=== PATIENT | female | born 1965 | race Two or more races ===

== ENCOUNTER → 2022-11-20 06:00 | Outpatient (CLI) | payer OTHER ==
[~2022-11-20] VITALS: Ht 160 cm; Wt 87.1 kg
[~2022-11-20 06:00] MED LIST: NORVASC10 MG PO
== END | disposition home or self-care (01) ==
LOC: LAB 06:00 → EDSTATUS 11-25 10:45 → SURH 11-25 10:45
PROVIDERS: ATTEND Colon & Rectal Surgery
DX: Z03.818 Encounter for observation for suspected exposure to other biological agents ruled out (principal); Z33.1 Pregnant state, incidental; Z20.822 Contact with and (suspected) exposure to COVID-19; K57.32 Diverticulitis of large intestine without perforation or abscess without bleeding; K92.1 Melena

== ENCOUNTER → 2022-11-21 | Outpatient (CLI) | payer OTHER | END | disposition home or self-care (01) | LOC: NUCLEAR 09:08 | PROVIDERS: ATTEND Internal Medicine Geriatric Medicine | DX: I35.0 Nonrheumatic aortic (valve) stenosis (principal); R01.1 Cardiac murmur, unspecified; I11.9 Hypertensive heart disease without heart failure ==

== ENCOUNTER 2024-10-08 11:22 | Inpatient (IN) | payer OTHER ==
[~2024-10-08] VITALS: Ht 160 cm; Wt 89.8 kg
[2024-10-08] MEDS ORDERED: JANTOVEN5 MG PO (11:29)
[2024-10-08] MEDS ORDERED: TOPROL XL50 M1 PO (11:30)
[2024-10-08] MEDS ORDERED: VASOTEC20 M1 PO (11:30)
--- NOTE | 2024-10-08 11:31 | NUR ---
PTE ALERTA Y ORIENTADA X3 NOTIFICA DOLOR EN TERRENCE PELVICA DESDE HORTENCIA EL CUAL SE INTENSIFICO SUKI LA MADRUGADA. REFIERE QUE EL DOLOR ES INTERMITENTE Y QUE ORINA MENOS CANTIDAD QUE ANTES. NIEGA OTRO SINTOMA RELACIONADO A ORINAR. SE MIDEN SV Y SE UBICA.
[2024-10-08] MEDS ORDERED: ONDANSETRON HCL 2 MG/ML VIAL IV ONE (12:45)
[2024-10-08] MEDS ORDERED: ONDANSETRON HCL 2 MG/ML VIAL ONE (12:50)
--- NOTE | 2024-10-08 13:00 | NUR ---
SE REALIZA LAB Y SE ADMINISTRA TX SGUN ORDEN MEDICA BAJO MEDIDAS ASEPTICAS. SE ORIENTA A PTE QUIEN REFIERE ENTENDER Y ACEPTAR. SE NOTIFICA ESTUDIO PENDIENTE A SECRETARIA
[2024-10-08 13:22] LABS: HEMATOCRIT 39.5 % (36.0-45.00); HEMOGLOBIN 13.2 g/dL (12.0-15.00); MEAN CELL VOLUME 83.3 fL (80.00-100.00); MEAN CORPUSCULAR HEMOGLOBIN 27.9 pg (27.00-32.0); MEAN CORPUSCULAR HGB CONC 33.5 g/dl (32.0-36.0); PLATELET COUNT 274 K/uL (150-450); RED BLOOD COUNT 4.75 M/uL (4.00-6.00); RED CELL DISTRIBUTION WIDTH 15.7 % (11.5-14.5)
[2024-10-08 13:45] LABS: CALCIUM 9.5 mg/dL (8.5-10.1); CREATININE SERUM 0.92 mg/dL (0.55-1.02); GFR 62.7; POTASSIUM 4.26 mEq/L (3.5-5.1)
[2024-10-08 14:08] LABS: PH,URINE 5.5 (5.0-8.0); URINE APPEARANCE Clear; URINE BILIRRUBIN Negative (NEGATIVE); URINE BLOOD Moderate; URINE COLOR Yellow; URINE GLUCOSE Negative (NEGATIVE); URINE KETONE Negative (NEGATIVE); URINE LEUKOCYTE Negative; URINE NITRATE Positive; URINE PROTEIN 30 (NEGATIVE); URINE UROBILINOGEN 0.2 E.U./dl
[2024-10-08 14:12] LABS: URINE EPITHELIAL CELLS 27.3 uL (0.0-38.8); URINE RBC 54.6 uL (0.0-20.8); URINE WBC 26.9 uL (0.0-23.2)
[2024-10-08 14:18] LABS: URINE BACTERIA > 9821.5 uL (0.0-1933)
[2024-10-08] MEDS ORDERED: PIPERACILLIN/TAZOBACTAM SODIUM 3.375 GM VIAL IV STA (16:44)
[2024-10-08] MEDS ORDERED: KETOROLAC TROMETHAMINE 15 MG VIAL IV STA (16:59)
[2024-10-08] MEDS ORDERED: PIPERACILLIN/TAZOBACTAM SODIUM 3.375 GM VIAL IV ONE (17:06)
[2024-10-08] MEDS ORDERED: KETOROLAC TROMETHAMINE 30 MG VIAL ONE (17:21)
[2024-10-08] MEDS ORDERED: FAMOTIDINE/PF 20 MG in 0.9 % SODIUM CHLORIDE 8 ML IV PUSH SCH (19:08)
[2024-10-08] MEDS ORDERED: ONDANSETRON HCL 4 MG in 0.9 % SODIUM CHLORIDE 50 ML IV PRN (19:15)
[2024-10-08] MEDS ORDERED: MORPHINE SULFATE 2 MG/ML CARTRIDGE IV SCH (19:15)
[2024-10-08] MEDS ORDERED: 0.9 % SODIUM CHLORIDE 1,000 ML IV SCH (19:15)
[2024-10-08] MEDS ORDERED: HYOSCYAMINE SULFATE 0.125 MG TAB.SUBL PO ONE (19:15)
[2024-10-08] MEDS ORDERED: ACETAMINOPHEN 500 MG GEL..CAP PO PRN (19:15)
[2024-10-08] MEDS ORDERED: WARFARIN SODIUM 5 MG TABLET PO SCH (21:00)
[2024-10-09] MEDS ORDERED: PIPERACILLIN/TAZOBACTAM SODIUM 3.375 GM in DEXTROSE 5 % IN WATER 100 ML IV SCH
[2024-10-09 00:21] VITALS: BP 108/72; O2SAT 95
[2024-10-09 00:21] LABS: INR 2.42
[2024-10-09 00:23] LABS: PARTIAL THROMBOPLASTIN TIME 47.9 SECONDS (22.0-34.0); PROTHROMBIN TIME 24.7 SECONDS (9.0-11.5)
[2024-10-09 02:00] VITALS: BP 140/64
[2024-10-09 08:01] VITALS: BP 96/46
[2024-10-09] MEDS ORDERED: METOPROLOL SUCCINATE 50 MG TAB.SR.24H PO SCH (09:00)
[2024-10-09] MEDS ORDERED: ENALAPRIL MALEATE 20 MG TABLET PO SCH (09:00)
[2024-10-09] MEDS ORDERED: SIMVASTATIN 20 MG TABLET PO SCH (17:00)
[2024-10-09 17:34] VITALS: BP 126/71; O2SAT 97
[2024-10-10 02:10] VITALS: BP 136/56
[2024-10-10 07:14] LABS: INR 3.09
[2024-10-10 09:01] VITALS: BP 174/64
[2024-10-10 16:25] VITALS: BP 132/93; O2SAT 98
[2024-10-10] MEDS ORDERED: MEROPENEM 500 MG/VIAL VIAL IV SCH (18:00)
[2024-10-10 21:44] VITALS: O2SAT 100
[2024-10-11] VITALS (9 sets, daily range): BP systolic 143–155; BP diastolic 56–63; O2SAT 90–100
[2024-10-11 06:10] LABS: HEMATOCRIT 33.5 % (36.0-45.00); MEAN CORPUSCULAR HGB CONC 32.9 g/dl (32.0-36.0); PLATELET COUNT 218 K/uL (150-450); RED BLOOD COUNT 3.94 M/uL (4.00-6.00)
[2024-10-11 06:53] LABS: ALBUMIN 2.8 gm/dL (3.4-5.0); BILIRUBIN TOTAL 0.34 mg/dL (0.3-1.2); CALCIUM 8.1 mg/dL (8.5-10.1); CREATININE SERUM 0.68 mg/dL (0.55-1.02); GFR 88.87; GLOBULINA 3.2 G/DL (2.4-3.5); PHOSPHOROUS 2.4 mg/dL (2.5-4.9); POTASSIUM 3.95 mEq/L (3.5-5.1)
[2024-10-11 06:56] LABS: C-REACTIVE PROTEIN 7.07 MG/DL (0.00-0.29)
[2024-10-11 07:44] LABS: INR 3.83
[2024-10-11 08:03] LABS: PROTHROMBIN TIME 37.8 SECONDS (9.0-11.5)
[2024-10-11] MEDS ORDERED: CYANOCOBALAMIN (VITAMIN B-12) 1,000 MCG/ML VIAL IM SCH (09:00)
[2024-10-11] MEDS ORDERED: SOD FERRIC GLUC COMPLX/SUCROSE 62.5 MG in 0.9 % SODIUM CHLORIDE 50 ML IV SCH (09:00)
[2024-10-11] MEDS ORDERED: AMINO ACIDS 1 EACH TABLET PO SCH (09:00)
[2024-10-11] MEDS ORDERED: FOLIC ACID 1 MG TABLET PO SCH (09:00)
[2024-10-12] VITALS (10 sets, daily range): BP systolic 136–180; BP diastolic 63–82; O2SAT 96–99
[2024-10-12 06:02] LABS: INR 3.71
[2024-10-12 06:24] LABS: PROTHROMBIN TIME 36.7 SECONDS (9.0-11.5)
[2024-10-12] MEDS ORDERED: SOD FERRIC GLUC COMPLX/SUCROSE 62.5 MG/5 ML AMPUL IV ONE (07:59)
[2024-10-12] MEDS ORDERED: FAMOTIDINE/PF 20 MG/2 ML VIAL ONE (07:59)
[2024-10-12] MEDS ORDERED: LOSARTAN POTASSIUM 25 MG TABLET PO SCH (09:00)
[2024-10-12 14:14] LABS: URINE APPEARANCE Clear; URINE BILIRRUBIN Negative (NEGATIVE); URINE BLOOD Small; URINE COLOR Yellow; URINE GLUCOSE Negative (NEGATIVE); URINE KETONE Negative (NEGATIVE); URINE LEUKOCYTE Negative; URINE NITRATE Negative; URINE PROTEIN Negative (NEGATIVE); URINE UROBILINOGEN 0.2 E.U./dl
[2024-10-12 14:17] LABS: URINE BACTERIA 4.8 uL (0.0-1933); URINE EPITHELIAL CELLS 8.3 uL (0.0-38.8)
[2024-10-12 15:14] LABS: URINE WBC 1.4 uL (0.0-23.2)
[2024-10-13] VITALS (10 sets, daily range): BP systolic 130–177; BP diastolic 50–80; O2SAT 97–99
[2024-10-13 06:51] LABS: INR 2.61
[2024-10-13 07:20] LABS: PROTHROMBIN TIME 26.5 SECONDS (9.0-11.5)
[2024-10-13] MEDS ORDERED: LACTOBACILLUS ACIDOPHILUS 1 CAP CAP PO SCH (09:00)
[2024-10-13] MEDS ORDERED: ENOXAPARIN SODIUM 100 MG/ML SYRINGE SUBCUTANEO NR (12:00)
[2024-10-13] MEDS ORDERED: ENOXAPARIN SODIUM 100 MG/ML SYRINGE SUBCUTANEO SCH (21:00)
[2024-10-13] MEDS ORDERED: ORPHENADRINE CITRATE 30 MG/ML AMPUL IV SCH (21:00)
[2024-10-14] VITALS (8 sets, daily range): BP systolic 162–171; BP diastolic 69–71; O2SAT 96–99
[2024-10-14 06:46] LABS: HEMATOCRIT 36.3 % (36.0-45.00); MEAN CELL VOLUME 84.8 fL (80.00-100.00); MEAN CORPUSCULAR HGB CONC 33.1 g/dl (32.0-36.0); PLATELET COUNT 251 K/uL (150-450); RED BLOOD COUNT 4.29 M/uL (4.00-6.00); RED CELL DISTRIBUTION WIDTH 14.4 % (11.5-14.5)
[2024-10-14 07:00] LABS: INR 1.76
[2024-10-14 07:12] LABS: PROTHROMBIN TIME 18.4 SECONDS (9.0-11.5)
[2024-10-14 07:23] LABS: ALBUMIN 3.2 gm/dL (3.4-5.0); BILIRUBIN TOTAL 0.57 mg/dL (0.3-1.2); CALCIUM 8.9 mg/dL (8.5-10.1); CREATININE SERUM 0.72 mg/dL (0.55-1.02); GFR 83.2; GLOBULINA 3.5 G/DL (2.4-3.5); MAGNESIUM 1.7 mg/dL (1.8-2.4); POTASSIUM 4.07 mEq/L (3.5-5.1); TOTAL PROTEIN 6.7 gm/dL (6.4-8.2)
[2024-10-15] VITALS (9 sets, daily range): BP systolic 157–160; BP diastolic 70–75; O2SAT 96–100
[2024-10-16] VITALS (10 sets, daily range): BP systolic 128–140; BP diastolic 50–70; O2SAT 8–99
[2024-10-16] MEDS ORDERED: LOSARTAN POTASSIUM 50 MG TABLET PO SCH (09:00)
[2024-10-17] VITALS (8 sets, daily range): BP systolic 150–171; BP diastolic 57–78; O2SAT 98–100
[2024-10-17 06:52] LABS: HEMATOCRIT 35.5 % (36.0-45.00); HEMOGLOBIN 11.6 g/dL (12.0-15.00); MEAN CELL VOLUME 85.3 fL (80.00-100.00); MEAN CORPUSCULAR HGB CONC 32.8 g/dl (32.0-36.0); PLATELET COUNT 261 K/uL (150-450); RED BLOOD COUNT 4.16 M/uL (4.00-6.00); RED CELL DISTRIBUTION WIDTH 14.8 % (11.5-14.5)
[2024-10-17 07:16] LABS: INR 1.18; PROTHROMBIN TIME 12.7 SECONDS (9.0-11.5)
[2024-10-17 07:34] LABS: BILIRUBIN TOTAL 0.4 mg/dL (0.3-1.2); CALCIUM 8.7 mg/dL (8.5-10.1); CREATININE SERUM 0.74 mg/dL (0.55-1.02); GFR 80.61; GLOBULINA 3.4 G/DL (2.4-3.5); MAGNESIUM 1.9 mg/dL (1.8-2.4); PHOSPHOROUS 2.9 mg/dL (2.5-4.9); POTASSIUM 5.08 mEq/L (3.5-5.1); TOTAL PROTEIN 6.4 gm/dL (6.4-8.2)
[2024-10-17] MEDS ORDERED: AMLODIPINE BESYLATE 5 MG TABLET PO SCH (12:00)
[2024-10-17 19:49] LABS: INR 1.18; PROTHROMBIN TIME 12.7 SECONDS (9.0-11.5)
[2024-10-18] VITALS (9 sets, daily range): BP systolic 118–137; BP diastolic 57–96; O2SAT 96–100
[2024-10-18] MEDS ORDERED: LOSARTAN POTASSIUM 50 MG TABLET PO SCH (09:00)
[2024-10-18] MEDS ORDERED: WARFARIN SODIUM 5 MG TABLET PO NR (09:00)
[2024-10-18] MEDS ORDERED: IRON FUM,PS/FOLIC/BCOMP,C NO.9 1 CAP CAPSULE PO SCH (09:00)
[2024-10-18] MEDS ORDERED: WARFARIN SODIUM 5 MG TABLET PO SCH (21:00)
[2024-10-19 00:35] VITALS: BP 141/69
[2024-10-19 01:17] VITALS: O2SAT 96
[2024-10-19 06:03] VITALS: O2SAT 98
[2024-10-19 08:55] VITALS: BP 144/80; O2SAT 98
== END 2024-10-19 10:07 | disposition home or self-care (01) | DRG 392 ==
LOC: ER 11:24 → MEDI 19:24
PROVIDERS: General Practice; Internal Medicine; Internal Medicine Infectious Disease; ADMIT Internal Medicine; ATTEND Internal Medicine
PROC: BW21ZZZ Computerized Tomography (CT Scan) of Abdomen and Pelvis (ICD-10-PCS; principal; 2024-10-08)
PROC: 4A12X4Z Monitoring of Cardiac Electrical Activity, External Approach (ICD-10-PCS; 2024-10-10)
DX: K57.32 Diverticulitis of large intestine without perforation or abscess without bleeding (principal); R65.10 Systemic inflammatory response syndrome (SIRS) of non-infectious origin without acute organ dysfunction; N39.0 Urinary tract infection, site not specified; G44.209 Tension-type headache, unspecified, not intractable; M54.2 Cervicalgia; D64.9 Anemia, unspecified; E88.09 Other disorders of plasma-protein metabolism, not elsewhere classified; B96.20 Unspecified Escherichia coli [E. coli] as the cause of diseases classified elsewhere; G47.33 Obstructive sleep apnea (adult) (pediatric); E78.5 Hyperlipidemia, unspecified; Z79.01 Long term (current) use of anticoagulants; Z95.2 Presence of prosthetic heart valve

== ENCOUNTER 2024-11-02 20:37 | Inpatient (IN) | payer OTHER ==
[~2024-11-02] VITALS: Ht 162.6 cm; Wt 86.2 kg
[~2024-11-02 20:37] MED LIST changes: +JANTOVEN5 MG PO; +TOPROL XL50 M1 PO; +VASOTEC20 M1 PO
--- NOTE | 2024-11-02 20:45 | NUR ---
PACIENTE REFIERE DOLOR ABDOMINAL CUADRANTE INFERIOR FABRICIO CON DOLOR A LA PALPACION Y NAUSEAS DESDE HORTENCIA
[2024-11-02] MEDS ORDERED: 0.9 % SODIUM CHLORIDE 1,000 ML IV STA (22:21)
[2024-11-02] MEDS ORDERED: FAMOTIDINE/PF 20 MG/2 ML VIAL IV PUSH STA (22:22)
[2024-11-02] MEDS ORDERED: ONDANSETRON HCL 2 MG/ML VIAL IV STA (22:22)
--- NOTE | 2024-11-02 22:32 | NUR ---
PTE ALERTA Y ORIENTADA X3, RN RODRIGUEZ ORIENTA SOBRE TX MEDICO, LA CUAL REFIERE ENTENDER Y ACEPTAR. CANALIZA Y COLECTA MUESTRAS DE LAB BAJO MEDIDAS ASEPTICAS. ADMINISTRA MEDS MADELEINE ORDEN MEDICA, NO PRESENTA REACCION. HACE ENTREGA DE ENVASE PARA U/A. SE REALIZA ESTUDIO PENDIENTE.
[2024-11-02 23:03] LABS: HEMATOCRIT 36.8 % (36.0-45.00); MEAN CORPUSCULAR HEMOGLOBIN 27.4 pg (27.00-32.0); MEAN CORPUSCULAR HGB CONC 32.3 g/dl (32.0-36.0); PLATELET COUNT 290 K/uL (150-450); RED BLOOD COUNT 4.33 M/uL (4.00-6.00); RED CELL DISTRIBUTION WIDTH 15.4 % (11.5-14.5)
[2024-11-02 23:28] LABS: HEMOGLOBIN 11.9 g/dL (12.0-15.00)
[2024-11-02 23:32] LABS: PH,URINE 5.5 (5.0-8.0); URINE APPEARANCE Turbid; URINE BILIRRUBIN Negative (NEGATIVE); URINE BLOOD Moderate; URINE COLOR Yellow; URINE GLUCOSE Negative (NEGATIVE); URINE KETONE Negative (NEGATIVE); URINE LEUKOCYTE Large; URINE NITRATE Negative; URINE UROBILINOGEN 0.2 E.U./dl
[2024-11-02 23:33] LABS: CALCIUM 9.3 mg/dL (8.5-10.1); CREATININE SERUM 0.93 mg/dL (0.55-1.02); GFR 61.92; POTASSIUM 4.06 mEq/L (3.5-5.1)
[2024-11-02 23:35] LABS: URINE EPITHELIAL CELLS 76.1 uL (0.0-38.8); URINE RBC 114.8 uL (0.0-20.8)
[2024-11-02 23:37] LABS: INR 2.49
[2024-11-02 23:40] LABS: PARTIAL THROMBOPLASTIN TIME 58.7 SECONDS (22.0-34.0); PROTHROMBIN TIME 25.4 SECONDS (9.0-11.5)
[2024-11-02 23:51] LABS: URINE CAST 0.14 uL (0.0-1.40); URINE PROTEIN 100 (NEGATIVE); URINE WBC > 5548.3 uL (0.0-23.2)
[2024-11-02] MEDS ORDERED: MORPHINE SULFATE 4 MG/ML VIAL IV STA (23:54)
[2024-11-02] MEDS ORDERED: METRONIDAZOLE/SODIUM CHLORIDE 500 MG/100 ML PIGGYBACK IV STA (23:55)
[2024-11-02] MEDS ORDERED: CIPROFLOXACIN IN 5 % DEXTROSE 400 MG/200 ML PIGGYBAG IV STA (23:55)
--- NOTE | 2024-11-03 00:03 | NUR ---
SE EDUCA A PACIENTE SOBRE NUEVO TRATAMIENTO ORDENADO POR MEDICO EN TURNO LA MISMA REFIERE ENTENDER Y SE PROCEDE A ADMINISTRAR MEDICAMENTO MADELEINE ORDEN MEDICA Y BAJO MEDIDA ASEPTICAS.
[2024-11-03] MEDS ORDERED: ENALAPRILAT DIHYDRATE 1.25 MG/ML VIAL IV PRN (07:15)
[2024-11-03] MEDS ORDERED: 0.9 % SODIUM CHLORIDE 1,000 ML IV SCH (07:15)
[2024-11-03] MEDS ORDERED: ONDANSETRON HCL 2 MG/ML VIAL IV PRN (07:15)
[2024-11-03] MEDS ORDERED: ENOXAPARIN SODIUM 100 MG/ML SYRINGE SUBCUTANEO SCH (09:00)
[2024-11-03] MEDS ORDERED: PANTOPRAZOLE SODIUM 40 MG/VIAL VIAL IV PUSH SCH (09:00)
[2024-11-03] MEDS ORDERED: METOPROLOL SUCCINATE 50 MG TAB.SR.24H PO SCH (09:00)
[2024-11-03 10:03] VITALS: BP 154/81
[2024-11-03] MEDS ORDERED: MEROPENEM 500 MG in 0.9 % SODIUM CHLORIDE 50 ML IV SCH (12:00)
[2024-11-03 15:30] VITALS: BP 114/70; O2SAT 98
[2024-11-03] MEDS ORDERED: ENALAPRIL MALEATE 10 MG TABLET PO SCH (21:00)
[2024-11-03] MEDS ORDERED: FAMOTIDINE/PF 20 MG/2 ML VIAL IV PUSH SCH (21:00)
[2024-11-03] MEDS ORDERED: MORPHINE SULFATE 2 MG/ML CARTRIDGE IV STA (22:25)
[2024-11-04 01:16] VITALS: BP 119/62; O2SAT 96
[2024-11-04 05:03] LABS: ERYTHROCYTE SEDIMENTATION RATE 75 mm/hr
[2024-11-04 05:05] LABS: HEMATOCRIT 38.6 % (36.0-45.00); HEMOGLOBIN 12.6 g/dL (12.0-15.00); MEAN CELL VOLUME 85.7 fL (80.00-100.00); MEAN CORPUSCULAR HEMOGLOBIN 28.1 pg (27.00-32.0); MEAN CORPUSCULAR HGB CONC 32.7 g/dl (32.0-36.0); PLATELET COUNT 271 K/uL (150-450); RED CELL DISTRIBUTION WIDTH 15.3 % (11.5-14.5)
[2024-11-04 05:20] LABS: COL EPI 88 SECONDS (82-175)
[2024-11-04 05:55] LABS: ALBUMIN 3.5 gm/dL (3.4-5.0); BILIRUBIN TOTAL 0.63 mg/dL (0.3-1.2); BILIRUBIN,CONJUGATED 0.21 mg/dL (0.0-0.2); BILIRUBIN,UNCONJUGATED 0.42 mg/dL (0.0-0.6); CALCIUM 8.6 mg/dL (8.5-10.1); CHOL HDL RATIO 3.3 (0-5.0); CREATININE SERUM 1.05 mg/dL (0.55-1.02); GFR 53.83; GLOBULINA 4.1 G/DL (2.4-3.5); MAGNESIUM 2.3 mg/dL (1.8-2.4); T4 FREE 1.19 NG/ML (0.76-1.46); TOTAL PROTEIN 7.6 gm/dL (6.4-8.2); TSH 0.961 uIU/mL (0.358-3.74)
[2024-11-04 05:57] LABS: C-REACTIVE PROTEIN 13.6 MG/DL (0.00-0.29); POTASSIUM 3.42 mEq/L (3.5-5.1)
[2024-11-04] MEDS ORDERED: MORPHINE SULFATE 2 MG/ML CARTRIDGE IV PRN (06:15)
[2024-11-04 08:19] LABS: PH,URINE 5.5 (5.0-8.0); URINE APPEARANCE Cloudy; URINE BILIRRUBIN Negative (NEGATIVE); URINE BLOOD Large; URINE COLOR Yellow; URINE GLUCOSE Negative (NEGATIVE); URINE LEUKOCYTE Moderate; URINE NITRATE Negative; URINE PROTEIN 30 (NEGATIVE)
[2024-11-04 08:20] LABS: URINE BACTERIA 48.9 uL (0.0-1933); URINE EPITHELIAL CELLS 15.1 uL (0.0-38.8)
[2024-11-04 08:32] LABS: URINE CAST 0.14 uL (0.0-1.40); URINE KETONE 40 (NEGATIVE)
[2024-11-04 08:39] VITALS: BP 126/75; O2SAT 98
[2024-11-04 16:00] VITALS: BP 117/62; O2SAT 96
[2024-11-04] MEDS ORDERED: LIDOCAINE 5% 1 PATCH ADH. TOP SCH (18:00)
[2024-11-04] MEDS ORDERED: VANCOMYCIN HCL 1,000 MG VIAL IV SCH (21:00)
[2024-11-05 00:28] VITALS: BP 131/62; O2SAT 94
[2024-11-05] MEDS ORDERED: LIDOCAINE 1 EACH ADH..PATCH TOP SCH ×2 (09:00→17:00)
[2024-11-05 14:55] VITALS: BP 135/57
[2024-11-05 16:00] VITALS: BP 123/61; O2SAT 100
[2024-11-05] MEDS ORDERED: VANCOMYCIN HCL 5 MG/ML REDILUIDO IV SCH (21:00)
[2024-11-06 01:06] VITALS: BP 164/73; O2SAT 98
[2024-11-06] MEDS ORDERED: LIDOCAINE 1 EACH ADH..PATCH TOP SCH (09:00)
[2024-11-06 12:46] VITALS: BP 121/69; O2SAT 98
[2024-11-06 16:08] VITALS: BP 170/73; O2SAT 99
[2024-11-06] MEDS ORDERED: GABAPENTIN 300 MG CAPSULE PO SCH (18:59)
[2024-11-07 09:54] VITALS: BP 156/68; O2SAT 98
[2024-11-07 10:41] LABS: PH,URINE 6.5 (5.0-8.0); URINE APPEARANCE Clear; URINE BILIRRUBIN Negative (NEGATIVE); URINE BLOOD Small; URINE COLOR Yellow; URINE GLUCOSE Negative (NEGATIVE); URINE KETONE Negative (NEGATIVE); URINE LEUKOCYTE Negative; URINE NITRATE Negative; URINE PROTEIN Negative (NEGATIVE); URINE UROBILINOGEN 0.2 E.U./dl
[2024-11-07 10:42] LABS: URINE BACTERIA 7.3 uL (0.0-1933); URINE EPITHELIAL CELLS 4.7 uL (0.0-38.8); URINE RBC 61.2 uL (0.0-20.8)
[2024-11-07 11:07] LABS: HEMATOCRIT 33.7 % (36.0-45.00); MEAN CELL VOLUME 85.4 fL (80.00-100.00); MEAN CORPUSCULAR HEMOGLOBIN 27.8 pg (27.00-32.0); MEAN CORPUSCULAR HGB CONC 32.6 g/dl (32.0-36.0); PLATELET COUNT 241 K/uL (150-450); RED BLOOD COUNT 3.94 M/uL (4.00-6.00); RED CELL DISTRIBUTION WIDTH 14.7 % (11.5-14.5)
[2024-11-07 11:40] LABS: INR 1.84
[2024-11-07 11:48] LABS: PARTIAL THROMBOPLASTIN TIME 52.4 SECONDS (22.0-34.0)
[2024-11-07 11:49] LABS: PROTHROMBIN TIME 19.2 SECONDS (9.0-11.5)
[2024-11-07 12:12] LABS: ALKALINE PHOSPHATASE 74 U/L (50-136); ALT/SGPT 34 U/L (12-78); ANION GAP 7 (10.0-20.0); AST/SGOT 33 U/L (15-37); BILIRUBIN TOTAL 0.38 mg/dL (0.3-1.2); BILIRUBIN,CONJUGATED < 0.10 mg/dL (0.0-0.2); BILIRUBIN,UNCONJUGATED 0.28 mg/dL (0.0-0.6); BLOOD UREA NITROGEN 8 mg/dL (7-18); BUN CREA RATIO 11 (7.0-25.0); CALCIUM 8.4 mg/dL (8.5-10.1); CARBON DIOXIDE 31 mEq/L (21-32); CHLORIDE 111 mmol/L (98-107); CREATININE SERUM 0.74 mg/dL (0.55-1.02); GFR 80.61; GLUCOSE FASTING 71 mg/dL (65-100); OSMOLALITY SERUM 285 MOSM/KG (275-295); SODIUM 145 mmol/L (136-145); TOTAL PROTEIN 6.5 gm/dL (6.4-8.2)
[2024-11-07 15:48] VITALS: BP 152/74; O2SAT 98
[2024-11-07] MEDS ORDERED: FAMOtidine 20 MG TABLET PO SCH (21:00)
[2024-11-08] VITALS: BP 139/73; O2SAT 96
[2024-11-08 08:00] VITALS: BP 154/90; O2SAT 96
[2024-11-08] MEDS ORDERED: PANTOPRAZOLE SODIUM 40 MG TABLET.DR PO SCH (09:00)
[2024-11-08 15:44] VITALS: BP 144/67; O2SAT 98
[2024-11-09 00:26] VITALS: BP 137/60; O2SAT 97
[2024-11-09 08:00] VITALS: BP 144/84; O2SAT 97
[2024-11-09 15:51] VITALS: BP 171/80; O2SAT 97
[2024-11-09] MEDS ORDERED: VANCOMYCIN HCL 5 MG/ML REDILUIDO IV SCH (21:00)
[2024-11-09 21:12] VITALS: BP 152/67; O2SAT 94
[2024-11-10] VITALS: BP 144/69; O2SAT 97
[2024-11-10] MEDS ORDERED: VANCOMYCIN HCL 1,000 MG VIAL IV SCH (09:00)
[2024-11-10 11:00] VITALS: BP 144/79; O2SAT 98
[2024-11-11 00:25] VITALS: BP 182/73; O2SAT 96
[2024-11-11] MEDS ORDERED: WARFARIN SODIUM 10 MG TABLET PO NR (07:30)
[2024-11-11 08:00] VITALS: BP 160/89; O2SAT 97
[2024-11-11] MEDS ORDERED: VANCOMYCIN HCL 1,000 MG VIAL IV SCH (09:00)
[2024-11-11] MEDS ORDERED: LIDOCAINE 5% 1 PATCH ADH. TOP SCH (09:00)
[2024-11-11 12:19] LABS: HEMATOCRIT 33.2 % (36.0-45.00); HEMOGLOBIN 11.1 g/dL (12.0-15.00); MEAN CELL VOLUME 84.1 fL (80.00-100.00); MEAN CORPUSCULAR HEMOGLOBIN 28.1 pg (27.00-32.0); MEAN CORPUSCULAR HGB CONC 33.5 g/dl (32.0-36.0); PLATELET COUNT 293 K/uL (150-450); RED BLOOD COUNT 3.94 M/uL (4.00-6.00); RED CELL DISTRIBUTION WIDTH 15.2 % (11.5-14.5)
[2024-11-11 12:46] LABS: ALBUMIN 3.3 gm/dL (3.4-5.0); BILIRUBIN TOTAL 0.33 mg/dL (0.3-1.2); CALCIUM 9.1 mg/dL (8.5-10.1); CREATININE SERUM 0.86 mg/dL (0.55-1.02); GFR 67.77; GLOBULINA 3.8 G/DL (2.4-3.5); POTASSIUM 4.06 mEq/L (3.5-5.1); TOTAL PROTEIN 7.1 gm/dL (6.4-8.2)
[2024-11-11 16:09] VITALS: BP 143/74; O2SAT 95
[2024-11-11] MEDS ORDERED: WARFARIN SODIUM 10 MG TABLET PO SCH (21:00)
[2024-11-12 00:24] VITALS: BP 135/76; O2SAT 98
[2024-11-12 08:20] LABS: INR 1.1; PROTHROMBIN TIME 11.9 SECONDS (9.0-11.5)
[2024-11-12 09:07] VITALS: BP 159/77; O2SAT 99
[2024-11-12 17:50] VITALS: BP 162/82; O2SAT 100
[2024-11-12 19:02] VITALS: BP 152/88
[2024-11-12] MEDS ORDERED: WARFARIN SODIUM 5 MG TABLET PO SCH (21:00)
[2024-11-12 23:34] VITALS: BP 138/82; O2SAT 100
[2024-11-13 07:44] VITALS: BP 169/85; O2SAT 97
[2024-11-13] MEDS ORDERED: AMLODIPINE BESYLATE 5 MG TABLET PO SCH (10:40)
[2024-11-13 16:41] VITALS: BP 143/82; O2SAT 98
[2024-11-14 00:26] VITALS: BP 138/62; O2SAT 96
[2024-11-14 07:14] LABS: INR 1.41
[2024-11-14 08:00] VITALS: BP 128/78; O2SAT 97
[2024-11-14 10:39] LABS: HEMATOCRIT 35.1 % (36.0-45.00); HEMOGLOBIN 11.5 g/dL (12.0-15.00); MEAN CELL VOLUME 86.4 fL (80.00-100.00); MEAN CORPUSCULAR HEMOGLOBIN 28.2 pg (27.00-32.0); MEAN CORPUSCULAR HGB CONC 32.6 g/dl (32.0-36.0); PLATELET COUNT 287 K/uL (150-450); RED BLOOD COUNT 4.07 M/uL (4.00-6.00); RED CELL DISTRIBUTION WIDTH 14.8 % (11.5-14.5)
[2024-11-14 10:43] LABS: ERYTHROCYTE SEDIMENTATION RATE 50 mm/hr
[2024-11-14 10:59] LABS: CALCIUM 9.3 mg/dL (8.5-10.1); CREATININE SERUM 0.91 mg/dL (0.55-1.02); GFR 63.49; POTASSIUM 4.07 mEq/L (3.5-5.1)
[2024-11-14 11:01] LABS: C-REACTIVE PROTEIN 2.21 MG/DL (0.00-0.29)
[2024-11-14 16:22] VITALS: BP 141/74; O2SAT 96
[2024-11-14 23:42] VITALS: BP 134/69; O2SAT 96
[2024-11-15 07:14] LABS: INR 1.47
[2024-11-15 07:27] LABS: PH,URINE 6.5 (5.0-8.0); URINE APPEARANCE Clear; URINE BILIRRUBIN Negative (NEGATIVE); URINE BLOOD Moderate; URINE COLOR Yellow; URINE KETONE Negative (NEGATIVE); URINE LEUKOCYTE Negative; URINE NITRATE Negative; URINE PROTEIN Negative (NEGATIVE); URINE UROBILINOGEN 0.2 E.U./dl
[2024-11-15 07:28] LABS: URINE BACTERIA 4.8 uL (0.0-1933); URINE EPITHELIAL CELLS 4.5 uL (0.0-38.8); URINE RBC 288.3 uL (0.0-20.8); URINE WBC 6.1 uL (0.0-23.2)
[2024-11-15 07:48] LABS: PROTHROMBIN TIME 15.6 SECONDS (9.0-11.5)
[2024-11-15 08:00] VITALS: BP 143/75; O2SAT 97
[2024-11-15] MEDS ORDERED: VANCOMYCIN HCL 1,000 MG VIAL ONE (15:07)
[2024-11-15 16:20] VITALS: BP 129/80; O2SAT 98
[2024-11-16 00:27] VITALS: BP 112/61; O2SAT 96
[2024-11-16 08:18] VITALS: BP 133/79; O2SAT 97
[2024-11-16 16:00] VITALS: BP 138/84; O2SAT 97
[2024-11-16] MEDS ORDERED: LEVOFLOXACIN500 MG PO (18:38)
[2024-11-16] MEDS ORDERED: INTESTINEX680 M1 PO (18:39)
[2024-11-16 20:44] LABS: INR 1.72
== END 2024-11-16 20:46 | disposition home or self-care (01) | DRG 392 ==
LOC: ER 20:40 → SEC-K 11-03 07:39 → SURG 11-03 11:29
PROVIDERS: Internal Medicine; Internal Medicine Infectious Disease; ADMIT Internal Medicine; ATTEND Internal Medicine
PROC: BW21ZZZ Computerized Tomography (CT Scan) of Abdomen and Pelvis (ICD-10-PCS; principal; 2024-11-02)
PROC: BW4GZZZ Ultrasonography of Pelvic Region (ICD-10-PCS; 2024-11-08)
PROC: B020ZZZ Computerized Tomography (CT Scan) of Brain (ICD-10-PCS; 2024-11-14)
DX: K57.32 Diverticulitis of large intestine without perforation or abscess without bleeding (principal); N30.91 Cystitis, unspecified with hematuria; N83.292 Other ovarian cyst, left side; R42 Dizziness and giddiness; I11.9 Hypertensive heart disease without heart failure; G47.33 Obstructive sleep apnea (adult) (pediatric); Z79.01 Long term (current) use of anticoagulants; Z95.2 Presence of prosthetic heart valve

== ENCOUNTER 2024-12-21 10:15 | Inpatient (IN) | payer OTHER ==
[~2024-12-21] VITALS: Ht 91.4 cm; Wt 88.0 kg
[~2024-12-21 10:15] MED LIST changes: +INTESTINEX680 M1 PO; +LEVOFLOXACIN500 MG PO
[2024-12-27] MEDS ORDERED: LIDOCAINE HCL 1%/EPINEPHRINE 20ML VIAL IJ ONE ×2 (13:00→13:38)
[2024-12-27] MEDS ORDERED: METRONIDAZOLE/SODIUM CHLORIDE 500 MG/100 ML PIGGYBACK IV ONE (13:00)
[2024-12-27] MEDS ORDERED: CEFTRIAXONE SODIUM 2,000 MG VIAL IV ONE (13:00)
[2024-12-27] MEDS ORDERED: BUPIVACAINE HCL/PF 0.25% 30ML VIAL InF ONE (13:00)
[2024-12-27] MEDS ORDERED: BUPIVACAINE HCL/MPF 0.5% 30ML VIAL ONE (13:38)
[2024-12-27] MEDS ORDERED: SUGAMMADEX SODIUM 200 MG/2 ML VIAL IV ONE (16:44)
[2024-12-27] MEDS ORDERED: MORPHINE SULFATE 4 MG/ML CARTRIDGE IV PRN (16:45)
[2024-12-27] MEDS ORDERED: OxyCODONE HCL 5 MG TABLET (ROXICODONE) PO PRN (16:45)
[2024-12-27] MEDS ORDERED: ONDANSETRON HCL 2 MG/ML VIAL IV PRN (16:45)
[2024-12-27] MEDS ORDERED: RINGERS SOLUTION,LACTATED 1,000 ML IV SCH (16:45)
[2024-12-27] MEDS ORDERED: HYOSCYAMINE SULFATE 0.125 MG TAB.SUBL SL SCH (17:00)
[2024-12-27] MEDS ORDERED: SIMETHICONE 125 MG CAPSULE PO SCH (17:00)
[2024-12-27] MEDS ORDERED: METOCLOPRAMIDE HCL 5 MG/ML VIAL IV SCH (17:00)
[2024-12-27] MEDS ORDERED: POLYETHYLENE GLYCOL 3350 17 GM BLIST.PACK PO SCH (17:00)
[2024-12-27] MEDS ORDERED: CELECOXIB 200 MG CAPSULE PO SCH (17:00)
[2024-12-27] MEDS ORDERED: GABAPENTIN 300 MG CAPSULE PO SCH (17:00)
[2024-12-27] MEDS ORDERED: MORPHINE SULFATE 4 MG/ML VIAL IV ONE ×3 (17:45→23:00)
[2024-12-27] MEDS ORDERED: METOCLOPRAMIDE HCL 5 MG/ML VIAL ONE ×2 (18:38→23:20)
[2024-12-27] MEDS ORDERED: ENALAPRILAT DIHYDRATE 1.25 MG/ML VIAL IV ONE ×4 (18:45→23:30)
[2024-12-27] MEDS ORDERED: ACETAMINOPHEN 500 MG GEL..CAP PO SCH (20:00)
[2024-12-27] MEDS ORDERED: ENALAPRIL MALEATE 20 MG TABLET PO SCH (20:15)
[2024-12-27] MEDS ORDERED: ENALAPRILAT DIHYDRATE 1.25 MG/ML VIAL IV PRN (20:15)
[2024-12-27] MEDS ORDERED: METOPROLOL SUCCINATE 50 MG TAB.SR.24H PO SCH (20:15)
[2024-12-27] MEDS ORDERED: FAMOTIDINE/PF 20 MG/2 ML VIAL IV PUSH SCH (21:00)
[2024-12-27] MEDS ORDERED: FAMOTIDINE/PF 20 MG/2 ML VIAL ONE (21:40)
[2024-12-27] MEDS ORDERED: SIMETHICONE 125 MG CAPSULE PO ONE (21:40)
[2024-12-27] MEDS ORDERED: ACETAMINOPHEN 500 MG GEL..CAP PO ONE (23:20)
[2024-12-27] MEDS ORDERED: GABAPENTIN 300 MG CAPSULE PO ONE (23:20)
[2024-12-27 23:22] LABS: HEMATOCRIT 37.4 % (36.0-45.00); MEAN CELL VOLUME 85.9 fL (80.00-100.00); MEAN CORPUSCULAR HEMOGLOBIN 27.6 pg (27.00-32.0); MEAN CORPUSCULAR HGB CONC 32.1 g/dl (32.0-36.0); PLATELET COUNT 282 K/uL (150-450); RED BLOOD COUNT 4.35 M/uL (4.00-6.00); RED CELL DISTRIBUTION WIDTH 15.7 % (11.5-14.5)
[2024-12-28] VITALS (8 sets, daily range): BP systolic 126–141; BP diastolic 54–79; O2SAT 93–100
[2024-12-28] MEDS ORDERED: MORPHINE SULFATE 4 MG/ML VIAL IV ONE
[2024-12-28] MEDS ORDERED: LABETALOL HCL 100 MG/20 ML ML ONE (00:39)
[2024-12-28] MEDS ORDERED: LABETALOL HCL 100 MG/20 ML ML IV ONE (00:40)
[2024-12-28] MEDS ORDERED: LABETALOL HCL 20MG/4ML SYRINGE IV ONE (01:00)
[2024-12-28 08:02] LABS: HEMATOCRIT 34.3 % (36.0-45.00); HEMOGLOBIN 11.5 g/dL (12.0-15.00); MEAN CELL VOLUME 84.8 fL (80.00-100.00); MEAN CORPUSCULAR HEMOGLOBIN 28.4 pg (27.00-32.0); MEAN CORPUSCULAR HGB CONC 33.5 g/dl (32.0-36.0); PLATELET COUNT 248 K/uL (150-450); RED BLOOD COUNT 4.04 M/uL (4.00-6.00); RED CELL DISTRIBUTION WIDTH 15.9 % (11.5-14.5)
[2024-12-28 08:25] LABS: CALCIUM 8.6 mg/dL (8.5-10.1); CREATININE SERUM 0.92 mg/dL (0.55-1.02); GFR 62.7; MAGNESIUM 1.9 mg/dL (1.8-2.4); PHOSPHOROUS 3.3 mg/dL (2.5-4.9); POTASSIUM 4.19 mEq/L (3.5-5.1)
[2024-12-28] MEDS ORDERED: LACTULOSE 20 G/30 ML BLIST.PACK PO SCH (09:00)
[2024-12-28] MEDS ORDERED: LACTOBACILLUS ACIDOPHILUS 1 CAP CAP PO SCH (09:00)
[2024-12-28] MEDS ORDERED: ENOXAPARIN SODIUM 40 MG/0.4 ML SYRINGE SUBCUTANEO SCH (17:00)
[2024-12-29] VITALS (9 sets, daily range): BP systolic 99–143; BP diastolic 60–78; O2SAT 83–99
[2024-12-29 08:16] LABS: HEMATOCRIT 33.7 % (36.0-45.00); MEAN CELL VOLUME 85.4 fL (80.00-100.00); MEAN CORPUSCULAR HEMOGLOBIN 27.8 pg (27.00-32.0); MEAN CORPUSCULAR HGB CONC 32.6 g/dl (32.0-36.0); PLATELET COUNT 250 K/uL (150-450); RED BLOOD COUNT 3.95 M/uL (4.00-6.00); RED CELL DISTRIBUTION WIDTH 15.8 % (11.5-14.5)
[2024-12-29] MEDS ORDERED: ENOXAPARIN SODIUM 40 MG/0.4 ML SYRINGE SUBCUTANEO SCH (09:00)
[2024-12-29 09:09] LABS: CALCIUM 8.9 mg/dL (8.5-10.1); CREATININE SERUM 1.01 mg/dL (0.55-1.02); GFR 56.3; MAGNESIUM 2.1 mg/dL (1.8-2.4); PHOSPHOROUS 2.4 mg/dL (2.5-4.9); POTASSIUM 4.39 mEq/L (3.5-5.1)
[2024-12-29] MEDS ORDERED: POTASSIUM PHOS,M-BASIC-D-BASIC 3 MM/ML VIAL IV NR (12:00)
[2024-12-29] MEDS ORDERED: ENOXAPARIN SODIUM 100 MG/ML SYRINGE SUBCUTANEO SCH (21:00)
[2024-12-29] MEDS ORDERED: PHENOL 177 ML BOTTLE MM SCH (21:30)
[2024-12-30 00:50] VITALS: BP 106/57; O2SAT 97
[2024-12-30 00:52] VITALS: O2SAT 93
[2024-12-30 05:17] VITALS: O2SAT 96
[2024-12-30 08:00] VITALS: BP 160/82; O2SAT 98
[2024-12-30 11:37] LABS: HEMATOCRIT 30.9 % (36.0-45.00); HEMOGLOBIN 10.2 g/dL (12.0-15.00); MEAN CELL VOLUME 86.8 fL (80.00-100.00); MEAN CORPUSCULAR HEMOGLOBIN 28.7 pg (27.00-32.0); MEAN CORPUSCULAR HGB CONC 33.1 g/dl (32.0-36.0); PLATELET COUNT 217 K/uL (150-450); RED BLOOD COUNT 3.56 M/uL (4.00-6.00); RED CELL DISTRIBUTION WIDTH 15.5 % (11.5-14.5)
[2024-12-30] MEDS ORDERED: FLUTICASONE PROPIONATE 50 MCG SPRAY NASAL SCH (11:40)
[2024-12-30] MEDS ORDERED: LORATADINE 10 MG TABLET PO STA (11:41)
== END 2024-12-30 14:52 | disposition home or self-care (01) | DRG 330 ==
LOC: O/R 12-27 08:39 → SURH 12-27 10:15
PROVIDERS: Internal Medicine Geriatric Medicine; ADMIT Colon & Rectal Surgery; ATTEND Colon & Rectal Surgery
PROC: 0DBP4ZZ Excision of Rectum, Percutaneous Endoscopic Approach (ICD-10-PCS; 2024-12-27)
PROC: 8E0W4CZ Robotic Assisted Procedure of Trunk Region, Percutaneous Endoscopic Approach (ICD-10-PCS; 2024-12-27)
PROC: 0DJD8ZZ Inspection of Lower Intestinal Tract, Via Natural or Artificial Opening Endoscopic (ICD-10-PCS; 2024-12-27)
PROC: 0DTN4ZZ Resection of Sigmoid Colon, Percutaneous Endoscopic Approach (ICD-10-PCS; principal; 2024-12-27 11:45)
PROC: 4A12X4Z Monitoring of Cardiac Electrical Activity, External Approach (ICD-10-PCS; 2024-12-28)
DX: K57.32 Diverticulitis of large intestine without perforation or abscess without bleeding (principal); K92.1 Melena; I10 Essential (primary) hypertension; I35.0 Nonrheumatic aortic (valve) stenosis; E78.5 Hyperlipidemia, unspecified; G47.30 Sleep apnea, unspecified
CPT/HCPCS: 44207; 44213; S2900

== ENCOUNTER 2024-12-31 09:47 | Inpatient (IN) | payer OTHER ==
[~2024-12-31] VITALS: Ht 160 cm; Wt 87.1 kg
--- NOTE | 2024-12-31 09:52 | NUR ---
SE RECIBE PTE ALERTA Y ORIENTADA X3. PTE REFIERE QUE FUE OPERADA DE DIVERTICULOS Y LA DIERON DE MITZI EN EL EULOGIO DE HORTENCIA Y DESDE ENTONCES MORIN TENIDO SANGR[facility]O RECTAL. PTE DE DR ROBLEDO
[2024-12-31] MEDS ORDERED: PANTOPRAZOLE SODIUM 40 MG/VIAL VIAL IV PUSH ONE (10:00)
[2024-12-31] MEDS ORDERED: 0.9 % SODIUM CHLORIDE 1,000 ML IV ONE (10:00)
--- NOTE | 2024-12-31 10:24 | NUR ---
SE ORIENTA SOBRE TX A SEGUIR, LA MISMA REFIERE ENTENDER. SE BRENDA MUESTRA DE LAB, SE CANALIZA Y SE ADMINISTRA MED MADELEINE ORDEB MEDICA
[2024-12-31 10:41] LABS: HEMATOCRIT 29.2 % (36.0-45.00); HEMOGLOBIN 9.8 g/dL (12.0-15.00); MEAN CORPUSCULAR HEMOGLOBIN 28.4 pg (27.00-32.0); MEAN CORPUSCULAR HGB CONC 33.4 g/dl (32.0-36.0); PLATELET COUNT 242 K/uL (150-450); RED BLOOD COUNT 3.43 M/uL (4.00-6.00); RED CELL DISTRIBUTION WIDTH 15.3 % (11.5-14.5)
[2024-12-31 11:03] LABS: INR 1.1; PROTHROMBIN TIME 11.9 SECONDS (9.0-11.5)
[2024-12-31 11:17] LABS: BILIRUBIN TOTAL 0.33 mg/dL (0.3-1.2); CALCIUM 8.9 mg/dL (8.5-10.1); CREATININE SERUM 0.81 mg/dL (0.55-1.02); GFR 72.62; GLOBULINA 3.7 G/DL (2.4-3.5); POTASSIUM 4.08 mEq/L (3.5-5.1); TOTAL PROTEIN 6.7 gm/dL (6.4-8.2)
[2024-12-31 17:02] LABS: HEMATOCRIT 25.6 % (36.0-45.00); MEAN CELL VOLUME 85.4 fL (80.00-100.00); MEAN CORPUSCULAR HGB CONC 33.4 g/dl (32.0-36.0); PLATELET COUNT 245 K/uL (150-450); RED CELL DISTRIBUTION WIDTH 15.1 % (11.5-14.5)
[2024-12-31 17:03] LABS: HEMOGLOBIN 8.5 g/dL (12.0-15.00); MEAN CORPUSCULAR HEMOGLOBIN 28.3 pg (27.00-32.0)
[2024-12-31 17:14] LABS: URINE APPEARANCE Clear; URINE BACTERIA 8.5 uL (0.0-1933); URINE BILIRRUBIN Negative (NEGATIVE); URINE BLOOD Moderate; URINE COLOR Yellow; URINE EPITHELIAL CELLS 34.5 uL (0.0-38.8); URINE GLUCOSE Negative (NEGATIVE); URINE KETONE Negative (NEGATIVE); URINE LEUKOCYTE Negative; URINE NITRATE Negative; URINE PROTEIN Negative (NEGATIVE); URINE RBC 148.7 uL (0.0-20.8); URINE UROBILINOGEN 0.2 E.U./dl; URINE WBC 6.4 uL (0.0-23.2)
[2024-12-31] MEDS ORDERED: ONDANSETRON HCL 2 MG/ML VIAL IV PRN (19:15)
[2024-12-31] MEDS ORDERED: DIPHENHYDRAMINE HCL 50 MG/ML VIAL 1ML IV ONE (19:15)
[2024-12-31] MEDS ORDERED: FUROsemide 20 MG/2 ML VIAL IV SCH ×2 (19:15→20:15)
[2024-12-31] MEDS ORDERED: 0.9 % SODIUM CHLORIDE 1,000 ML IV SCH (19:15)
[2024-12-31] MEDS ORDERED: SOD FERRIC GLUC COMPLX/SUCROSE 62.5 MG in 0.9 % SODIUM CHLORIDE 50 ML IV SCH (20:12)
[2024-12-31] MEDS ORDERED: Cyanocobalamin/Mecobalamin 1 TAB.SL SL SCH (20:13)
[2024-12-31] MEDS ORDERED: FAMOTIDINE/PF 20 MG/2 ML VIAL IV SCH (21:00)
[2024-12-31 22:11] LABS: MEAN CELL VOLUME 85.1 fL (80.00-100.00); MEAN CORPUSCULAR HGB CONC 33.5 g/dl (32.0-36.0); PLATELET COUNT 239 K/uL (150-450); RED BLOOD COUNT 2.67 M/uL (4.00-6.00); RED CELL DISTRIBUTION WIDTH 15.4 % (11.5-14.5)
[2024-12-31 22:14] LABS: MEAN CORPUSCULAR HEMOGLOBIN 28.4 pg (27.00-32.0)
[2024-12-31 22:15] LABS: HEMATOCRIT 22.7 % (36.0-45.00); HEMOGLOBIN 7.6 g/dL (12.0-15.00)
[2025-01-01 01:29] VITALS: BP 133/76; O2SAT 98
[2025-01-01 08:00] VITALS: BP 123/66; O2SAT 100
[2025-01-01] MEDS ORDERED: LACTOBACILLUS ACIDOPHILUS 1 CAP CAP PO SCH (09:00)
[2025-01-01] MEDS ORDERED: METOPROLOL SUCCINATE 50 MG TAB.SR.24H PO SCH (09:00)
[2025-01-01] MEDS ORDERED: ENALAPRIL MALEATE 20 MG TABLET PO SCH (09:00)
[2025-01-01 16:29] VITALS: BP 118/73; O2SAT 100
[2025-01-02 00:02] VITALS: BP 129/77; O2SAT 98
[2025-01-02 02:27] LABS: HEMOGLOBIN 11.4 g/dL (12.0-15.00); MEAN CELL VOLUME 85.2 fL (80.00-100.00); MEAN CORPUSCULAR HEMOGLOBIN 28.6 pg (27.00-32.0); MEAN CORPUSCULAR HGB CONC 33.6 g/dl (32.0-36.0); PLATELET COUNT 216 K/uL (150-450); RED BLOOD COUNT 3.99 M/uL (4.00-6.00); RED CELL DISTRIBUTION WIDTH 14.9 % (11.5-14.5)
[2025-01-02 08:20] VITALS: BP 135/55; O2SAT 97
[2025-01-02 16:57] VITALS: BP 129/75; O2SAT 96
[2025-01-02] MEDS ORDERED: ENOXAPARIN SODIUM 40 MG/0.4 ML SYRINGE SUBCUTANEO SCH (17:00)
[2025-01-03] VITALS: BP 127/71; O2SAT 98
[2025-01-03 08:00] VITALS: BP 149/82; O2SAT 99
[2025-01-03 11:54] LABS: HEMOGLOBIN 10.9 g/dL (12.0-15.00); MEAN CELL VOLUME 87.3 fL (80.00-100.00); MEAN CORPUSCULAR HEMOGLOBIN 29.9 pg (27.00-32.0); MEAN CORPUSCULAR HGB CONC 34.2 g/dl (32.0-36.0); PLATELET COUNT 273 K/uL (150-450); RED BLOOD COUNT 3.67 M/uL (4.00-6.00)
[2025-01-03 17:21] VITALS: BP 155/88; O2SAT 99
[2025-01-03 22:41] VITALS: BP 135/69; O2SAT 98
[2025-01-04 01:20] VITALS: BP 137/75; O2SAT 100
[2025-01-04 06:48] LABS: HEMATOCRIT 30.4 % (36.0-45.00); HEMOGLOBIN 10.5 g/dL (12.0-15.00); MEAN CELL VOLUME 85.8 fL (80.00-100.00); MEAN CORPUSCULAR HEMOGLOBIN 29.6 pg (27.00-32.0); MEAN CORPUSCULAR HGB CONC 34.5 g/dl (32.0-36.0); PLATELET COUNT 270 K/uL (150-450); RED BLOOD COUNT 3.55 M/uL (4.00-6.00); RED CELL DISTRIBUTION WIDTH 14.9 % (11.5-14.5)
[2025-01-04 08:00] VITALS: BP 135/80; O2SAT 99
[2025-01-04] MEDS ORDERED: ENOXAPARIN SODIUM 80 MG/0.8 ML SYRINGE SUBCUTANEO SCH (09:37)
[2025-01-04] MEDS ORDERED: SIMETHICONE 125 MG CAPSULE PO STA (10:56)
[2025-01-04] MEDS ORDERED: SIMETHICONE 125 MG CAPSULE PO PRN (11:00)
[2025-01-04] MEDS ORDERED: HYOSCYAMINE SULFATE 0.125 MG TAB.SUBL SL PRN (11:00)
[2025-01-04 16:00] VITALS: BP 149/72; O2SAT 98
[2025-01-05 01:38] VITALS: BP 135/82; O2SAT 100
[2025-01-05 08:00] VITALS: BP 149/82; O2SAT 98
[2025-01-05 17:28] LABS: HEMATOCRIT 34.8 % (36.0-45.00); HEMOGLOBIN 11.6 g/dL (12.0-15.00); MEAN CELL VOLUME 87.7 fL (80.00-100.00); MEAN CORPUSCULAR HEMOGLOBIN 29.3 pg (27.00-32.0); MEAN CORPUSCULAR HGB CONC 33.4 g/dl (32.0-36.0); PLATELET COUNT 304 K/uL (150-450); RED BLOOD COUNT 3.97 M/uL (4.00-6.00); RED CELL DISTRIBUTION WIDTH 15.1 % (11.5-14.5)
[2025-01-05 17:54] VITALS: BP 171/79; O2SAT 100
[2025-01-05] MEDS ORDERED: WARFARIN SODIUM 2 MG TABLET PO SCH (21:00)
[2025-01-06] VITALS: BP 146/68; O2SAT 95
[2025-01-06 08:33] VITALS: BP 115/62; O2SAT 98
[2025-01-06 14:34] LABS: BASO % 0.5 % (0.1-1.2); EOS # 0.18 (0.04-0.54); EOS % 2.1 % (0.7-7.0); HEMATOCRIT 31.3 % (34.1-44.9); HEMOGLOBIN 10.4 g/dL (11.2-15.7); LYMPH # 1.58 (1.18-3.74); LYMPH % 18.2 % (19.3-53.1); MEAN CORPUSCULAR HEMOGLOBIN 28.7 pg (25.6-32.2); MONO % 6.9 % (4.7-12.5); NEUT # 6.25 (1.56-6.13); NEUT % 71.7 % (34.0-71.1); PLATELET COUNT 337 K/uL (163-369); RED BLOOD COUNT 3.63 M/uL (3.93-5.22); RED CELL DISTRIBUTION WIDTH 14.9 % (11.6-14.4)
[2025-01-06 15:14] LABS: INR 1.08; PROTHROMBIN TIME 11.7 SECONDS (9.0-11.5)
[2025-01-06 16:00] VITALS: BP 121/69; O2SAT 97
[2025-01-07 01:18] VITALS: BP 130/84; O2SAT 100
[2025-01-07 09:05] VITALS: BP 108/56; O2SAT 94
[2025-01-07 13:36] LABS: INR 1.07; PROTHROMBIN TIME 11.6 SECONDS (9.0-11.5)
[2025-01-07 13:48] LABS: BASO % 0.6 % (0.1-1.2); EOS # 0.23 (0.04-0.54); EOS % 2.7 % (0.7-7.0); HEMATOCRIT 31.4 % (34.1-44.9); HEMOGLOBIN 10.5 g/dL (11.2-15.7); LYMPH # 1.89 (1.18-3.74); LYMPH % 22.3 % (19.3-53.1); MEAN CORPUSCULAR HEMOGLOBIN 28.8 pg (25.6-32.2); MONO # 0.76 (0.24-0.82); NEUT # 5.51 (1.56-6.13); NEUT % 64.8 % (34.0-71.1); PLATELET COUNT 334 K/uL (163-369); RED BLOOD COUNT 3.65 M/uL (3.93-5.22); RED CELL DISTRIBUTION WIDTH 15.1 % (11.6-14.4)
[2025-01-07 16:00] VITALS: BP 120/73; O2SAT 97
[2025-01-08 00:32] VITALS: BP 134/82; O2SAT 100
[2025-01-08 07:39] LABS: BASO % 0.6 % (0.1-1.2); EOS # 0.25 (0.04-0.54); EOS % 2.9 % (0.7-7.0); HEMATOCRIT 32.5 % (34.1-44.9); HEMOGLOBIN 10.9 g/dL (11.2-15.7); LYMPH # 1.87 (1.18-3.74); LYMPH % 21.6 % (19.3-53.1); MEAN CORPUSCULAR HEMOGLOBIN 28.9 pg (25.6-32.2); MONO # 0.62 (0.24-0.82); MONO % 7.2 % (4.7-12.5); NEUT # 5.81 (1.56-6.13); NEUT % 67.2 % (34.0-71.1); PLATELET COUNT 346 K/uL (163-369); RED BLOOD COUNT 3.77 M/uL (3.93-5.22); RED CELL DISTRIBUTION WIDTH 14.7 % (11.6-14.4)
[2025-01-08 08:33] LABS: INR 1.08; PROTHROMBIN TIME 11.7 SECONDS (9.0-11.5)
[2025-01-08 09:22] VITALS: BP 130/73; O2SAT 95
[2025-01-08] MEDS ORDERED: WARFARIN SODIUM 4 MG TABLET PO STA (13:18)
[2025-01-08 16:00] VITALS: BP 152/83; O2SAT 98
[2025-01-08] MEDS ORDERED: WARFARIN SODIUM 4 MG TABLET PO SCH (21:00)
[2025-01-09 00:40] VITALS: BP 143/78; O2SAT 100
[2025-01-09 07:56] VITALS: BP 120/67; O2SAT 98
[2025-01-09 11:59] LABS: BASO % 0.6 % (0.1-1.2); EOS # 0.19 (0.04-0.54); EOS % 2.2 % (0.7-7.0); HEMATOCRIT 33.5 % (34.1-44.9); HEMOGLOBIN 10.8 g/dL (11.2-15.7); LYMPH # 1.79 (1.18-3.74); LYMPH % 20.6 % (19.3-53.1); MEAN CORPUSCULAR HEMOGLOBIN 28.3 pg (25.6-32.2); MONO # 0.72 (0.24-0.82); MONO % 8.3 % (4.7-12.5); NEUT # 5.88 (1.56-6.13); NEUT % 67.8 % (34.0-71.1); PLATELET COUNT 353 K/uL (163-369); RED BLOOD COUNT 3.81 M/uL (3.93-5.22); RED CELL DISTRIBUTION WIDTH 14.8 % (11.6-14.4)
[2025-01-09 12:27] LABS: INR 1.25; PROTHROMBIN TIME 13.4 SECONDS (9.0-11.5)
[2025-01-09 15:43] VITALS: BP 139/58; O2SAT 99
[2025-01-09] MEDS ORDERED: WARFARIN SODIUM 3 MG TABLET PO SCH (21:00)
[2025-01-09] MEDS ORDERED: POLYETHYLENE GLYCOL 3350 17 GM BLIST.PACK PO SCH (21:00)
[2025-01-10 00:34] VITALS: BP 104/62; O2SAT 98
[2025-01-10 08:00] VITALS: BP 142/74; O2SAT 100
[2025-01-10 12:51] LABS: BASO % 0.7 % (0.1-1.2); EOS # 0.17 (0.04-0.54); EOS % 2.1 % (0.7-7.0); HEMATOCRIT 35.3 % (34.1-44.9); HEMOGLOBIN 11.4 g/dL (11.2-15.7); LYMPH # 2.03 (1.18-3.74); LYMPH % 24.5 % (19.3-53.1); MEAN CORPUSCULAR HEMOGLOBIN 28.9 pg (25.6-32.2); MONO # 0.67 (0.24-0.82); MONO % 8.1 % (4.7-12.5); NEUT # 5.33 (1.56-6.13); NEUT % 64.4 % (34.0-71.1); PLATELET COUNT 366 K/uL (163-369); RED BLOOD COUNT 3.94 M/uL (3.93-5.22); RED CELL DISTRIBUTION WIDTH 14.6 % (11.6-14.4)
[2025-01-10 13:06] LABS: INR 1.47
[2025-01-10 13:47] LABS: PROTHROMBIN TIME 15.6 SECONDS (9.0-11.5)
[2025-01-10 16:00] VITALS: BP 110/61; O2SAT 99
[2025-01-10] MEDS ORDERED: WARFARIN SODIUM 7.5 MG TABLET PO SCH (21:00)
[2025-01-10] MEDS ORDERED: WARFARIN SODIUM 5 MG TABLET PO ONE (21:26)
[2025-01-10] MEDS ORDERED: WARFARIN SODIUM 2.5 MG TABLET PO ONE (21:26)
[2025-01-11 01:14] VITALS: BP 136/65; O2SAT 100
[2025-01-11 08:00] VITALS: BP 133/78; O2SAT 100
[2025-01-11] MEDS ORDERED: ORPHENADRINE CITRATE 100 MG TABLET PO NR (10:00)
[2025-01-11 12:16] LABS: INR 1.6
[2025-01-11 12:35] LABS: PROTHROMBIN TIME 16.8 SECONDS (9.0-11.5)
[2025-01-11] MEDS ORDERED: TOPROL XL50 M1 PO (14:53)
[2025-01-11] MEDS ORDERED: SIMETHICONE125 M1 PO (14:53)
[2025-01-11] MEDS ORDERED: INTESTINEX680 M1 PO (14:53)
[2025-01-11] MEDS ORDERED: VASOTEC20 M1 PO (14:53)
[2025-01-11] MEDS ORDERED: JANTOVEN5 MG PO (14:53)
[2025-01-11 16:46] VITALS: BP 137/70; O2SAT 100
[2025-01-11] MEDS ORDERED: WARFARIN SODIUM PO SCH (21:00)
[2025-01-11] MEDS ORDERED: WARFARIN SODIUM 7.5 MG TABLET PO SCH (21:00)
== END 2025-01-11 18:26 | disposition home or self-care (01) | DRG 379 ==
LOC: ER 09:47 → SURH 19:16
PROVIDERS: General Practice; Internal Medicine Geriatric Medicine; Surgery; ADMIT Colon & Rectal Surgery; ATTEND Colon & Rectal Surgery
PROC: BW21YZZ Computerized Tomography (CT Scan) of Abdomen and Pelvis using Other Contrast (ICD-10-PCS; principal; 2024-12-31)
PROC: 4A12X4Z Monitoring of Cardiac Electrical Activity, External Approach (ICD-10-PCS; 2025-01-01)
PROC: 30233N1 Transfusion of Nonautologous Red Blood Cells into Peripheral Vein, Percutaneous Approach (ICD-10-PCS; 2025-01-01)
DX: K62.5 Hemorrhage of anus and rectum (principal); D64.9 Anemia, unspecified; I10 Essential (primary) hypertension; T45.515A Adverse effect of anticoagulants, initial encounter; Z95.2 Presence of prosthetic heart valve